=== PATIENT | male | born 1940 | race Caucasian/White ===

== ENCOUNTER → 2018-12-16 | Outpatient (CLI) | payer MEDICARE | END | disposition home or self-care (01) | LOC: LABWHC1 12:57 | PROVIDERS: ATTEND Urology | DX: R97.20 Elevated prostate specific antigen [PSA] (principal) | CPT/HCPCS: 36415; 84153 ==

== ENCOUNTER → 2020-05-10 | Outpatient (CLI) | payer MEDICARE ==
--- NOTE | 2020-05-14 06:52 | MR ---
EXAMINATION TYPE: MR Prostate wo/w con DATE OF EXAM: 05/10/2020 COMPARISON: None INDICATION: Increased PSA PSA: 13.8 ng/ml on September 26, 2019 Recent Biopsy and Date: July 07, 2017 Pathology Report (If Applicable): Benign. TECHNIQUE: Examination was performed using a 3T MRI without an endorectal coil. Multiparametric imaging was perf ormed with T2 mutliplanar sequences, axial diffusion weighted imaging and dynamic contrast enhanced i maging, utilizing 7 mL intravenous Gadavist gadolinium contrast. FINDINGS: There is no clinically significant cancer identified. PROSTATE VOLUME: 6.1 cm SI x 4.5 cm AP x 5.4 cm LR Vol= 77.6 cc PSA DENSITY: 9.312 ng/ml/cc Enlarged prostate with transitional zone hypertrophy and bulky expansion of the right base into the b ladder base. Peripheral zone is very thin with some areas of indistinct hypointensity on ADC mapping. No areas of mild to moderate hypointensity or restricted diffusion on DWI. Transitional zone is heterogeneous with a heterogeneous 2.9 cm encapsulated nodule right base axial i mage 27 for reference. Site 1: Assessment Category: 3 Size: Areas of heterogeneous hypointense signal intensity with obscured margins particularly left lat eral base anteriorly axial image 24 for reference. No restricted diffusion noted. Seminal vesicles symmetric and slightly bulky. No concerning pelvic adenopathy. Capsule maintained. Mild wall thickening and trabeculation poorly distended bladder greatest anteriorly. Diverticula in t he adjacent sigmoid colon. Heterogeneity of the visualized portion of bilateral femoral heads. No con cerning pelvic fluid collection. IMPRESSION: Highest Assessment Category: 3 MRI Stage: T1 N0 M0 based on review of pelvic images. False negative rates for MRI range from 5-20% depending on risk profile. Assessment Categories: 1 ? Very low (clinically significant cancer is highly unlikely to be present) 2 ? Low (clinically significant cancer is unlikely to be present) 3 ? Intermediate (the presence of clinically significant cancer is equivocal) 4 ? High (clinically significant cancer is likely to be present) 5 ? Very high (clinically significant cancer is highly likely to be present) Locations: PZ = peripheral zone; TZ = transition zone CZ=central zone; AFS = anterior fibromuscular stroma a=anterior half (i.e. PZa=anterior half of peripheral zone); pm= posterior medial (i.e PZpm) pl = postero-lateral (i.e. PZpl); p = posterior half (i.e. TZp) ; a = anterior half (i.e TZa or P Za) Other: N=no or no; E= equivocal; Y=yes EPE = extraprostatic extension NVB = neurovascular bundle NA = not applicable/not available
== END | disposition home or self-care (01) ==
LOC: RADMRIMAIN 10:23
PROVIDERS: ATTEND Urology
DX: C61 Malignant neoplasm of prostate (principal)
CPT/HCPCS: 72197; A9585

== ENCOUNTER 2020-11-01 06:03 | Day surgery (SDC) | payer MEDICARE ==
[2020-10-30 16:07] VITALS: BMI 22.2
--- NOTE | 2020-10-31 13:18 | P.GSHP ---
History of Present Illness H&P Date: 10/29/20 Chief Complaint: Elevated PSA level The patient is an 79-year-old white male with a persistently elevated PSA level. His most recent PSA level was 20.60 in August 2020. He has no family history of prostate cancer. He has undergone prostate ultrasound with biopsies on 2 occa sions, showing no evidence of malignancy. An MRI in April 2020 showed a prostate volume of 78 mL with no PI-RADS 4 or 5 lesions. He is aware of the risk of prostate cancer and comes for saturation biopsies. - Cardiovascular Cardiovascular: Reports high blood pressure - Genitourinary (Male) Genitourinary: Reports nocturia Past Medical History - Past Family History Mother Family Medical History: Cancer Brother(s) Family Medical History: Congestive Heart Failure (CHF) Medications and Allergies Home Medications Medication Instructions Recorded Confirmed Type Albuterol Inhaler [Ventolin Hfa 1 puff INHALATION DAILY PRN 10/30/20 10/30/20 History Inhaler] Albuterol Nebulized [Ventolin 2.5 mg INHALATION Q4H 10/30/20 10/30/20 History Nebulized] Aspirin 325 mg PO DAILY 10/30/20 10/30/20 History Atenolol [Tenormin] 25 mg PO BID 10/30/20 10/30/20 History Atorvastatin [Lipitor] 40 mg PO DAILY 10/30/20 10/30/20 History Multivitamins, Thera [Multivitamin 1 tab PO DAILY 10/30/20 10/30/20 History (formulary)] Ramipril [Altace] 5 mg PO BID 10/30/20 10/30/20 History Umeclidinium Brm/Vilanterol Tr 1 puff INHALATION DAILY 10/30/20 10/30/20 History [Anoro Ellipta 62.5-25 Mcg INH] Zolpidem Tartrate [Ambien] 10 mg PO HS PRN 10/30/20 10/30/20 History amLODIPine [Norvasc] 10 mg PO DAILY 10/30/20 10/30/20 History Allergies Allergy/AdvReac Type Severity Reaction Status Date / Time No Known Allergies Allergy Verified 10/30/20 15:50 Surgical - Exam - General well developed, well nourished, no distress - Respiratory normal respiratory effort - Abdomen Abdomen: soft, non tender, no guarding, no rigid, no rebound - Genitourinary normal penis with no external lesions, testicles non-tender - Rectum Rectum: normal sphincter tone, no masses, other (Prostate moderately enlarged, smooth but slightly firm) - Psychiatric oriented to time, oriented to person, oriented to place, speech is normal, memory intact Assessment and Plan (1) Elevated prostate specific antigen [PSA] Status: Acute Code(s): R97.20 - ELEVATED PROSTATE SPECIFIC ANTIGEN [PSA] SNOMED Code(s): 702914680 Plan: Ultrasound-guided transperineal saturation prostate biopsies. The rationale for the procedure then reviewed in detail with the patient. He has been made aware of potential risks, which include anesthesia, peroneal bruising, infection, and urinary retention.
[2020-11-01] MEDS ORDERED: LIDOCAINE 1% (10MG/ML) FOR IV START INTRADERMA PRN (06:27)
[2020-11-01] MEDS ORDERED: LACTATED RINGERS 1,000 ML IV ONE (06:27)
[2020-11-01] MEDS ORDERED: LACTATED RINGERS 1,000 ML IV SCH (06:27)
[2020-11-01] MEDS ORDERED: DEXAMETHASONE SOD PHOSPHATE 4 MG/ML 1 ML VIAL IVP ONE (06:42)
[2020-11-01] MEDS ORDERED: ONDANSETRON 4 MG/2 ML VIAL IVP ONE (06:42)
[2020-11-01] MEDS ORDERED: fentaNYL (PF) 50 MCG/ML 2 ML AMP ONE (07:51)
[2020-11-01] MEDS ORDERED: GLYCOPYRROLATE 0.2 MG/ML 2 ML VIAL ONE (07:51)
[2020-11-01] MEDS ORDERED: ePHEDrine SULFATE/0.9% NACL/PF 50 MG/5 ML SYRINGE IV ONE (07:51)
[2020-11-01] MEDS ORDERED: PROPOFOL 10 MG/ML 20 ML VIAL IV ONE (07:51)
[2020-11-01] MEDS ORDERED: LIDOCAINE 1% INJ 10MG/ML (20 ML MDV) ONE (07:51)
[2020-11-01] MEDS ORDERED: LIDOCAINE 2% INJ 20 MG/ML SQ ONE ×2 (08:12)
[2020-11-01 09:48] VITALS: TEMP 97.4
[2020-11-01 09:56] VITALS: RESP 16
--- NOTE | 2020-11-01 10:05 | P.OP ---
Date of Procedure: 11/01/20 Preoperative Diagnosis: Elevated PSA Postoperative Diagnosis: Same Procedure(s) Performed: Transperineal Prostate Saturation Biopsies Anesthesia: AMENA Surgeon: Jorge Monroe Estimated Blood Loss (ml): 30 Pathology: other (Prostate biopsies) Condition: stable Disposition: PACU Indications for Procedure: The patient is an 79-year-old white male with a persistently elevated PSA level. His most recent PSA level was 20.60 in August 2020. He has no family history of prostate cancer. He has undergone prostate ultrasound with biopsies on 2 occasions, showing no evidence of malignancy. An MRI in April 2020 showed a prostate volume of 78 mL with no PI-RADS 4 or 5 lesions. He is aware of the risk of prostate cancer and comes for saturation biopsies. Operative Findings: Enlarged prostate. No hypoechoic lesions seen. Description of Procedure: The patient was taken to the operating room and placed in the dorsolithotomy position, with his legs supported in Abel stirrups. The external genitalia was prepped and draped sterilely. The Bruel and Kjaer transrectal ultrasound probe was placed intrarectally. The prostate was imaged. The probe was then placed within the stabilizing stand. A spinal needle was advanced under ultrasonic guidance to the level of the urogenital diaphragm, and lidocaine was used to infiltrate the tissues as the needle was withdrawn. The prostate volume was measured at 64 mL. Next, with the grid in place, multiple prostate biopsies were obtained using the [employer] gun under ultrasonic guidance (both axial and sagittal). The transitional zone and peripheral zone were biopsied bilaterally. Approximately 60 biopsies were obtained. The transrectal ultrasound probe was then removed and the procedure was terminated. The patient tolerated the procedure well was taken to the recovery room in stable condition.
[2020-11-01 10:57] VITALS: BP 148/68; PULSE 61
== END 2020-11-01 11:19 | disposition home or self-care (01) ==
LOC: OR 06:03
PROVIDERS: ATTEND Urology
DX: N41.1 Chronic prostatitis (principal); N42.31 Prostatic intraepithelial neoplasia; R35.1 Nocturia; I10 Essential (primary) hypertension; Z79.899 Other long term (current) drug therapy; Z79.82 Long term (current) use of aspirin
CPT/HCPCS: 55706; 88344; 88305; J2001 ×2; J1100; J0690; J2405; J3010; J2704